=== PATIENT | female | born 1930 | race African-American/Black ===

== ENCOUNTER 2017-07-30 12:41 | Outpatient (CLI) | payer MEDICARE ==
[2017-07-30 13:24] LABS: #Basophils 0.1 thou/uL (0.0-0.2); #Eosinphils 0.1 thou/uL (0.0-0.7); #Lymphocytes 1.8 thou/uL (1.20-3.40); #Monocytes 0.4 thou/uL (0.11-0.59); #Neutrophils 3.4 thou/uL (1.40-6.50); %Basophils 1.5 % (0.0-1.0); %Eosinophils 1.4 % (0.0-10.0); %Lymphocytes 30.7 % (21.0-51.0); %Monocytes 6.9 % (0.0-10.0); %Neutrophils 59.4 % (42.0-75.0); Hemoglobin 10.6 g/dL (12.0-16.0); Mean Corpuscular HGB CONC 32.1 g/dL (32.0-36.0); Mean Corpuscular Hemoglobin 29.1 pg (27.0-31.0); Mean Corpuscular Volume 90.9 fl (81.0-99.0); Mean Platelet Volume 5.9 fL (7.4-10.4); Platelet Count 271 thou/uL (130-400); RBC Distribution Width 11.7 % (11.5-14.5); Red Blood Cell (RBC) Count 3.64 mill/uL (4.20-5.40); White Blood Cell (WBC) Count 5.8 thou/uL (4.8-10.8)
[2017-07-30 13:36] LABS: ALT (SGPT) Less than 7 U/L (8-55); AST (SGOT) 12 U/L (5-34); Albumin 3.6 g/dL (3.4-4.8); Alkaline Phosphatase 64 U/L (40-150); Anion Gap 14 mmol/L (10-20); BUN (Urea Nitrogen) 20 mg/dL (9.8-20.1); Bilirubin, Total 0.5 mg/dL (0.2-1.2); Calc. Creatinine Clearance 0 mL/min (70-130); Calcium 9.6 mg/dL (7.8-10.44); Carbon Dioxide 23 mmol/L (23-31); Chloride 91 mmol/L (98-107); Estimated GFR-MDRD 60; Globulin 2.3 g/dL (2.4-3.5); Glucose 123 mg/dL (83-110); Potassium 4.8 mmol/L (3.5-5.1); Protein, Total 5.9 g/dL (6.0-8.3); Sodium 123 mmol/L (136-145)
== END 2017-07-30 12:42 | disposition home or self-care (01) ==
LOC: MADLAB 12:41
PROVIDERS: ATTEND Family Medicine
DX: S06.6X0D Traumatic subarachnoid hemorrhage without loss of consciousness, subsequent encounter (principal); I10 Essential (primary) hypertension
CPT/HCPCS: 80053; 85025

== ENCOUNTER 2017-12-14 17:39 | Emergency (ER) | payer MEDICARE ==
[~2017-12-14 17:39] MED LIST: Sodium Chloride 0.9% 1,000 ML BAG ONE
[2017-12-14 18:16] LABS: #Basophils 0.1 thou/uL (0.0-0.2); #Eosinphils 0.1 thou/uL (0.0-0.7); #Lymphocytes 1.5 thou/uL (1.20-3.40); #Monocytes 1.1 thou/uL (0.11-0.59); #Neutrophils 6.5 thou/uL (1.40-6.50); %Basophils 0.9 % (0.0-1.0); %Eosinophils 0.9 % (0.0-10.0); %Lymphocytes 15.7 % (21.0-51.0); %Monocytes 11.4 % (0.0-10.0); %Neutrophils 71.1 % (42.0-75.0); Hemoglobin 10.9 g/dL (12.0-16.0); Mean Corpuscular Hemoglobin 29.6 pg (27.0-31.0); Mean Corpuscular Volume 89.6 fL (78.0-98.0); Mean Platelet Volume 7.9 fL (7.4-10.4); Platelet Count 331 thou/uL (130-400); RBC Distribution Width 11.4 % (11.5-14.5); Red Blood Cell (RBC) Count 3.69 mill/uL (4.20-5.40); White Blood Cell (WBC) Count 9.2 thou/uL (4.8-10.8)
[2017-12-14 18:34] LABS: CKMB 3.2 ng/mL (0-6.6); Troponin I 0.098 ng/mL (< 0.028)
[2017-12-14 18:37] LABS: ALT (SGPT) 7 U/L (8-55); AST (SGOT) 15 U/L (5-34); Albumin 3.7 g/dL (3.4-4.8); Alkaline Phosphatase 63 U/L (40-150); Anion Gap 13 mmol/L (10-20); BUN (Urea Nitrogen) 22 mg/dL (9.8-20.1); Bilirubin, Total 0.6 mg/dL (0.2-1.2); Calc. Creatinine Clearance 0 mL/min (70-130); Calcium 9.7 mg/dL (7.8-10.44); Carbon Dioxide 21 mmol/L (23-31); Chloride 86 mmol/L (98-107); Estimated GFR-MDRD 44; Globulin 2.7 g/dL (2.4-3.5); Glucose 113 mg/dL (83-110); Potassium 4.2 mmol/L (3.5-5.1); Protein, Total 6.4 g/dL (6.0-8.3)
--- NOTE | 2017-12-14 19:20 | CT ---
CT BRAIN WITHOUT CONTRAST: HISTORY: Injury. Fall. Headache. FINDINGS: There are changes of cortical atrophy and chronic small vessel ischemic disease. The ventricular siz e is appropriate, and the basilar cisterns are patent. No evidence of infarct, hemorrhage, midline s hift, or abnormal extraaxial fluid collections is seen. The ventricular size is appropriate, and the basilar cisterns are patent. The bony calvarium is intact. The visualized paranasal sinuses and ma stoid air cells are well aerated. There is soft tissue swelling in the left periorbital region. IMPRESSION: No CT evidence of acute intracranial process. POS: [facility]
--- NOTE | 2017-12-14 19:21 | RAD ---
PORTABLE CHEST ONE VIEW: 12/14/2017 6:17 p.m. HISTORY: Injury. Fall. Hypertension. CHF. FINDINGS: The heart is enlarged. The aorta is tortuous. The lungs are well expanded without lobar consolidati on, pneumothoraces, mateo pulmonary edema, or pleural effusions. IMPRESSION: Cardiomegaly. POS: [facility]
--- NOTE | 2017-12-14 19:23 | CT ---
CT CERVICAL SPINE WITH CORONAL AND SAGITTAL REFORMATIONS: HISTORY: Fall. Neck pain. FINDINGS: There is suggestion of an an oblique fracture involving the posterior aspect of the body of the C2 ve rtebra without significant displacement. There are degenerative changes in the lower cervical spine. No subluxation is seen. No facet malalignment is identified. Discussed over the telephone with ER physician, Dr. Hamzah Payne, at 6:49 p.m. CODE CR POS: [facility]
--- NOTE | 2017-12-14 19:24 | CT ---
CT FACIAL BONES WITH CORONAL AND SAGITTAL REFORMATIONS: HISTORY: Fall. Injury. Facial pain. FINDINGS: No facial bone fracture is seen. No temporomandibular dislocation is identified. The visualized par anasal sinuses and mastoid air cells are well aerated. There is soft tissue swelling in the left per iorbital region. POS: [facility]
[2017-12-14 19:29] LABS: Sodium 116 mmol/L (136-145)
[2017-12-14] MEDS ORDERED: Fentanyl 100 MCG/2 ML VIAL ONE (20:04)
== END 2017-12-14 20:50 | disposition short-term general hospital (02) ==
LOC: MADERS 17:39
DX: S12.100A Unspecified displaced fracture of second cervical vertebra, initial encounter for closed fracture (principal); E87.1 Hypo-osmolality and hyponatremia; E87.6 Hypokalemia; I11.0 Hypertensive heart disease with heart failure; I50.9 Heart failure, unspecified; W22.03XA Walked into furniture, initial encounter
CPT/HCPCS: 36415; 70450; 70486; 71045; 72125; 80053; 82553; 83880; 84484; 85025; 93005; 94760; 96374; J3010; J7050

== ENCOUNTER 2018-02-19 10:10 | Emergency (ER) | payer MEDICARE ==
[2018-02-19 11:09] LABS: Mean Corpuscular Hemoglobin 29.1 pg (27.0-31.0); Mean Corpuscular Volume 88.3 fL (78.0-98.0); Mean Platelet Volume 6.9 fL (7.4-10.4); Platelet Count 282 thou/uL (130-400); Red Blood Cell (RBC) Count 4.11 mill/uL (4.20-5.40)
[2018-02-19 11:23] LABS: MDiff Complete? YES; Manual Diff?? YES
[2018-02-19 11:24] LABS: Anisocytosis SLIGHT = 6-15 cells (100X) (0-5/hpf); Lymphocytes 29 % (21-51); Monocytes 2 % (0-10); Neutrophil 69 % (42-75); PLT Morphology Comment Appears Adequate
[2018-02-19 12:03] LABS: ALT (SGPT) 7 U/L (8-55); AST (SGOT) 16 U/L (5-34); Albumin 3.7 g/dL (3.4-4.8); Alkaline Phosphatase 71 U/L (40-150); Anion Gap 16 mmol/L (10-20); BUN (Urea Nitrogen) 54 mg/dL (9.8-20.1); Bilirubin, Total 0.7 mg/dL (0.2-1.2); Calc. Creatinine Clearance 0 mL/min (70-130); Carbon Dioxide 19 mmol/L (23-31); Chloride 88 mmol/L (98-107); Estimated GFR-MDRD 36; Globulin 2.7 g/dL (2.4-3.5); Glucose 96 mg/dL (83-110); Potassium 4.9 mmol/L (3.5-5.1); Protein, Total 6.4 g/dL (6.0-8.3)
[2018-02-19 12:14] LABS: Sodium 118 mmol/L (136-145)
[2018-02-19] MEDS ORDERED: Sodium Chloride 0.9% 1,000 ML ONE (12:36)
[2018-02-19] MEDS ORDERED: Lorazepam 1 MG TAB ONE (13:05)
[2018-02-19] MEDS ORDERED: cloNIDine 0.1 MG TAB ONE (13:06)
== END 2018-02-19 14:20 | disposition short-term general hospital (02) ==
LOC: MADERS 10:10
DX: E87.1 Hypo-osmolality and hyponatremia (principal); I11.0 Hypertensive heart disease with heart failure; I50.9 Heart failure, unspecified; F17.220 Nicotine dependence, chewing tobacco, uncomplicated; Z79.82 Long term (current) use of aspirin; Z79.899 Other long term (current) drug therapy
CPT/HCPCS: 80053; 85025; 96360; J7050